=== PATIENT | male | born 1955 ===

== ENCOUNTER 2018-09-22 08:31 | Day surgery (SDC) | payer OTHER ==
[~2018-09-22 08:31] MED LIST: LIDOCAINE HCL 1% 5 ML ONE; PROPOFOL 500 MG/50 ML EMU IV ONE
[2018-09-22 11:34] VITALS: BP 125/83; PULSE 73; RESP 20; TEMP 97.5; O2SAT 98
== END 2018-09-22 11:50 | disposition home or self-care (01) ==
LOC: SURG 08:31
PROVIDERS: ATTEND Surgery
DX: Z12.11 Encounter for screening for malignant neoplasm of colon (principal)
CPT/HCPCS: J2704